=== PATIENT | female | born 1985 | race Caucasian/White ===

== ENCOUNTER 2020-07-02 18:06 | Observation (INO) ==
[2020-07-02] MEDS ORDERED: ACETAMINOPHEN 325 MG TABLET PO PRN (22:38)
[2020-07-02] MEDS ORDERED: NORMAL SALINE 1,000 ML IV ONE (22:39)
--- NOTE | 2020-07-02 23:13 | HP ---
Chief Complaint - Chief Complaint Date of Service: 07/02/20 Time of Service: 22:47 Chief Complaint: I had cough, shortness of breath, chest pain, and fever for more than 3 days History of Present Illness: 35-year-old female was transferred to [facility] from [facility] after being diagnosed with acute left-sided bronchopneumonia and shortness of breath. Patient reports that over the past 3 days she has been having a persistent productive cough with worsening shortness of breath, fever, and a left-sided upper back pain. While at [facility] the patient underwent a full work-up while in the ER was found to have a positive D-dimer but chest CTA was negative for PE. She was also found to be septic with an elevated WBCs and lactic acid and tachycardia. The patient was started on antibiotics and IV fluids but due to the unavailability of beds at [facility] she was transferred to our facility to continue her treatment. Of note the patient has been treated for bronchopneumonia on the same side detected on imaging before but no underlying pathology has been diagnosed. Medical History (Last Updated 07/02/20 @ 20:05 by Amanda Madsen RN) Pneumonia Surgical History: Surgical History (Last Updated 07/02/20 @ 20:13 by Amanda Madsen RN) History of dilatation and curettage (Acute) also had dilatation and evacuation History of tonsillectomy and adenoidectomy Peds Patient Hx - Developmental: No Pertinent Hx Peds Patient Hx - Medical: No Pertinent Hx Peds Patient Hx - Cardiac/Respiratory: No Pertinent Hx Peds Patient Hx - Surgical: No Surgical History Patient History - Cancer: No Hx of Cancer Review Of Systems (GEN) - Review of Systems Generalized/Overall Review: Present: Chills, Fever EENTM: Present: No Symptoms Reported Respiratory: Present: Cough, Shortness of Breath Cardiac: Present: Chest Pain - Left-sided chest pain Abdominal: Present: No Symptoms Reported Genitourinary: Present: No Symptoms Reported Musculoskeletal: Present: No Symptoms Reported Neurological: Present: No Symptoms Reported Skin: Present: No Symptoms Reported Endocrine: Present: No Symptoms Reported Allergies/Adverse Reactions: Allergies Allergy/AdvReac Type Severity Reaction Status Date / Time No Known Allergies Allergy Unverified 07/02/20 18:54 Home Medications: HOME MEDICATIONS NK 07/02/20 [Last Taken Unknown] Exam - Exam Vital Signs: Vital Signs - Last Taken Temp 37.1 C 07/02/20 18:25 Pulse 123 H 07/02/20 18:25 Resp 20 07/02/20 18:25 BP 135/75 07/02/20 18:25 Pulse Ox 97 07/02/20 18:25 Constitutional: Present: Alert, Oriented x3, Cooperative, Well developed, Well nourished, No distress ENT Exam: Present: normal ENT inspection, hearing grossly normal Eye Exam: bilateral eye: normal inspection, PERRL, EOMI Neck: Present: non-tender, full range of motion, supple, normal inspection, trachea midline Back Exam: Present: normal inspection, no CVA tenderness, no vertebral tenderness Breasts: Present: Exam deferred, Nontender Respiratory: Present: chest non-tender, lungs clear, normal breath sounds, no respiratory distress, no accessory muscle use Cardiovascular/Chest: Present: normal peripheral pulses, regular rate, rhythm, no chest tenderness, no edema, no gallop, no JVD, no murmur, no rub Peripheral Pulses: dorsalis-pedis (R): 2+, dorsalis-pedis (L): 2+ Abdomen: Present: Normal bowel sounds, soft, nontender, nondistended, no rebound tenderness, no hepatospenomegaly, no masses /Rectal: Present: Exam deferred Extremity: Present: normal range of motion, non-tender Skin Exam: Present: normal color, warm/dry, no cyanosis Lymphatic: Present: no adenopathy 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 Patient was treated with a dose of Levaquin over [facility], so we will continue the same antibiotic while she is here. Labs done in the ER before the patient was transferred revealed a WBC of 21 and a positive D-dimer. The patient had a CT angio which was negative for pulmonary embolism but she was found to have a left-sided consolidation which confirmed the diagnosis of bronchopneumonia. The patient also had tachycardia while in the ER so recommendation to keep her overnight for monitoring was made. Her tachycardia has improved since arriving at our facility but we will place her on telemetry monitoring as a precaution. In the meantime the patient will be treated with antibiotics and IV hydration. We will also order blood cultures to rule out any additional infections. - Assessment/Plan (1) Acute bronchopneumonia Problem: Acute (2) Recurrent pneumonia Problem: Acute (3) Tachycardia Problem: Acute (4) Elevated d-dimer Problem: Acute
[2020-07-02] MEDS: guaiFENesin 100 MG/5 ML SYRUP PO PRN (23:29)
[2020-07-02] MEDS: LEVOFLOXACIN 500 MG TABLET PO SCH (23:32)
[2020-07-03] MEDS: guaiFENesin 100 MG/5 ML SYRUP PO PRN ×2 (03:44→10:43)
[2020-07-03 06:30] LABS: Hematocrit 28.1 % (37.0-47.0); Hemoglobin 9.1 gm/dL (12.5-16.0); Mean Cell Volume 85.7 fl (78-100); Mean Corpuscular Hemoglobin 27.7 pg (27-31); Mean Corpuscular Hgb Conc 32.4 g/dl (32-36); Mean Platelet Volume 8.7 fl (8-12.5); Neutrophil # 9.9 K/mm3 (1.3-6.0); Neutrophil % 78.7 % (42-75.0); Platelet Count 155 K/mm3 (150-450); Red Blood Count 3.28 M/mm3 (4.2-5.4); Red Cell Distribution Width 13.6 % (11.5-14.0); White Blood Count 12.6 K/mm3 (4.0-10.5)
[2020-07-03 06:46] LABS: Albumin * 2.2 gm/dl (3.4-5.0); Anion Gap 12.3 mmol/L (6.8-13.8); BUN/Creatinine Ratio 12.2 (9.0-21.6); Bilirubin, Total 0.4 mg/dL (0.0-1.1); Calcium * 7.9 mg/dL (7.9-10.9); Potassium 3.3 mmol/L (3.4-4.6); Total Protein 5.8 gm/dL (6.2-8.2)
[2020-07-03] MEDS ORDERED: PANTOPRAZOLE SODIUM 20 MG TABLET.DR PO SCH (07:00)
[2020-07-03] MEDS: LEVOFLOXACIN 500 MG TABLET PO SCH (10:42)
[2020-07-03] MEDS ORDERED: POTASSIUM CHLORIDE 20 MEQ TABLET.SA PO ONE (11:07)
--- NOTE | 2020-07-03 11:19 | DS ---
(1) Acute bronchopneumonia Problem: Acute (2) Recurrent pneumonia Problem: Acute (3) Tachycardia Problem: Resolved (4) Elevated d-dimer Problem: Acute Date of Discharge:: 07/03/20 Hospital Course: 35-year-old female admitted for left-sided bronchopneumonia and tachycardia was evaluated at bedside and was found to be afebrile and in no acute distress. Patient had no recurrence of fever or chills during the hospitalization and her white count this morning has improved significantly. WBCs have decreased from 21 to 14 in response to the antibiotics. The patient's tachycardia has also resolved most likely due to IV fluids. This morning she reports feeling much better and says the pain in her left upper thorax has resolved and her breathing is less labored, she also reports significant improvement in her coughing. The patient has been treated with p.o. Levaquin, so we will discharge her with additional days of Levaquin and a repeat CBC to reevaluate WBCs and a repeat CMP to evaluate potassium levels that she was hypokalemic this morning. P.o. supplementation of potassium was ordered so levels will have to be rechecked in a couple of days. Patient was instructed to follow-up with a PCP and a discussion about the recurrence of her pneumonia in the same exact location was encouraged. Procedures Performed: none Results and Findings: Lab Pending Results 07/03/20 06:20: WBC 12.6 H, RBC 3.28 L, Hgb 9.1 L, Hct 28.1 L, MCV 85.7, MCH 27.7, MCHC 32.4, RDW 13.6, Plt Count 155, MPV 8.7, Immature Gran % (Auto) 3.90 H, Immature Gran # (Auto) 0.49 H, Neutrophils % 78.7 H, Lymphocytes % 11.4 L, Monocytes % 5.6, Eosinophils % 0.2, Basophils % 0.2, Nucleated RBC % 0.0, Neutrophils # 9.9 H, Lymphocytes # 1.44 L, Monocytes # 0.7, Eosinophils # 0.0, Absolute Basophils 0.0 07/03/20 06:20: Sodium 137, Plasma Sodium 137, Potassium 3.3 L, Chloride 103, Carbon Dioxide 25.0, Anion Gap 12.3, BUN 6, Creatinine 0.49, Est GFR (Non-Af Amer) 155 H, BUN/Creatinine Ratio 12.2, Random Glucose 92, Calcium 7.9, Calcium Adj for Albumin 9.0, Total Bilirubin 0.4, AST 16, ALT 17 L, Alkaline Phosphatase 126, Total Protein 5.8 L, Albumin 2.2 L Discharge Location: Home Disposition: Home self-care Condition: Fair Face to Face Encounter completed per [facility] Guidelines: No Discharge Activity: Activity as tolerated Discharge Diet: General/regular food Prescriptions (Any new or edited meds): Levofloxacin [Levaquin] 500 mg PO DAILY@1100 3 Days #3 tablet Complete Home Medications List: Complete Home Medication List: Levofloxacin [Levaquin] 500 mg PO DAILY@1100 3 Days #3 tablet 07/03/20 Forms: Patient Portal Registration
[2020-07-03 15:48] VITALS: BP 118/80
== END 2020-07-03 14:30 | disposition home or self-care (01) ==
LOC: MS 18:06 → INTOOBSV 18:06
PROVIDERS: ADMIT Family Medicine; ATTEND Family Medicine